=== PATIENT | female | born 1965 | race Caucasian/White ===

== ENCOUNTER 2017-02-26 09:01 | Day surgery (SDC) | payer OTHER ==
--- NOTE | 2017-02-26 10:44 | HISTORY & PHYSICAL EXAMINATION ---
HPI - History of Present Illness HPI Comment/Other: Eleonora is here for screening colonoscopy. Current Meds: ATORVASTATIN CALCIUM 20 MG ORAL TABS (ATORVASTATIN CALCIUM) Take 20 mg by mouth daily Past Medical History: Reviewed history and no changes required: Hyperlipidemia Past Surgical History: Reviewed history and no changes required: Radical hysterectomy - 1996 Family History Summary: Reviewed history and no changes required: 01/09/2017 Father () - Has a father who is alive and well - Entered On: 01/09/2017 Social History: Reviewed history and no changes required: Risk Factors: Smoked Tobacco Use: Current every day smoker Cigarettes: Yes -- 1/2 pack(s) per day,Exercise: yes Times per week: 1 Type of Exercise: Walking Problems were reviewed with the patient during this visit. Medications were reviewed with the patient during this visit. Allergies were reviewed with the patient during this visit. No known allergies. Physical Exam General: well developed, well nourished, in no acute distress Lungs: clear bilaterally to A & P Heart: regular rate and rhythm, S1, S2 without murmurs, rubs, gallops, or clicks Abdomen: bowel sounds positive; abdomen soft and non-tender without masses, organomegaly, or hernias noted Pulses: pulses normal in all 4 extremities Extremities: no clubbing, cyanosis, edema, or deformity noted with normal full range of motion of all joints Cervical Nodes: no significant adenopathy Psych: alert and cooperative; normal mood and affect; normal attention span and concentration Impression & Recommendations: Problem # 1: screening for colon cancer Will proceed with colonoscopy PMH/PSH - Past Medical History Cardiovascular: positive: None Respiratory: positive: None GI: positive: None : positive: None HEENT: positive: None Musculoskeletal: positive: Other MRSA Hx?: No - 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
[2017-02-26] MEDS ORDERED: fentaNYL 100 MCG/2 ML VIAL IVP ONE (10:46)
[2017-02-26] MEDS ORDERED: LACTATED RINGERS 1,000 ML IV ONE ×2 (10:46→11:30)
[2017-02-26] MEDS ORDERED: MIDAZOLAM 2 MG/2 ML VIAL IVP ONE (10:46)
[2017-02-26 12:14] VITALS: BP 110/56
== END 2017-02-26 09:02 | disposition home or self-care (01) ==
LOC: SDS 09:01
PROVIDERS: ATTEND Surgery
PROC: 0DBN8ZX Excision of Sigmoid Colon, Via Natural or Artificial Opening Endoscopic, Diagnostic (ICD-10-PCS; 2017-02-26)
PROC: 0DBH8ZX Excision of Cecum, Via Natural or Artificial Opening Endoscopic, Diagnostic (ICD-10-PCS; 2017-02-26)
PROC: 0DBK8ZX Excision of Ascending Colon, Via Natural or Artificial Opening Endoscopic, Diagnostic (ICD-10-PCS; principal; 2017-02-26 10:30)
DX: Z12.11 Encounter for screening for malignant neoplasm of colon (principal); D12.2 Benign neoplasm of ascending colon; D12.0 Benign neoplasm of cecum; D12.5 Benign neoplasm of sigmoid colon; K64.8 Other hemorrhoids; E78.5 Hyperlipidemia, unspecified; F17.210 Nicotine dependence, cigarettes, uncomplicated; Z90.710 Acquired absence of both cervix and uterus
CPT/HCPCS: 45380; 45385; J7120; 88305

== ENCOUNTER 2017-11-05 07:58 | Emergency (ER) | payer OTHER ==
--- NOTE | 2017-11-05 08:31 | ED Physician Documentation ---
PD HPI URI - Stated complaint Stated Complaint: FLU LIKE SX - Chief complaint Chief Complaint: Resp - History obtained from History obtained from: Patient - History of Present Illness Timing - onset: How many days ago (3-4) Timing duration: Days (3-4) Timing details: Abrupt onset, Still present Associated symptoms: Fever, Chills, Swollen nodes, Dry cough, Chest pain. No: Dyspnea, NVD, Bilateral edema Contributing factors: No: Sick contact, Travel, Immunocompromised Worsened by: Activity, Breathing Similar symptoms before: Has not had sx before Recently seen: Not recently seen Review of Systems Constitutional: reports: Fever, Chills, Myalgias Nose: reports: Rhinorrhea / runny nose, Congestion Throat: denies: Sore throat Cardiac: reports: Chest pain / pressure (sternal/anterior hurts to cough). denies: Palpitations Respiratory: reports: Dyspnea, Cough, Wheezing GI: reports: Nausea. denies: Abdominal Pain, Vomiting, Diarrhea Skin: denies: Rash, Lesions Neurologic: reports: Generalized weakness. denies: Focal weakness, Numbness, Near syncope PD PAST MEDICAL HISTORY - Past Medical History Past Medical History: Yes Cardiovascular: High cholesterol Respiratory: None Neuro: None GI: None : None HEENT: None Musculoskeletal: Other - Past Surgical History Past Surgical History: Yes /REPLENISHER: Hysterectomy - Present Medications Home Medications: Ambulatory Orders Medication Instructions Recorded Confirmed Atorvastatin Calcium [Lipitor] 20 mg PO DAILY 06/19/15 02/26/17 Benzonatate [Tessalon] 100 mg PO TID PRN #25 capsule 11/05/17 Dexamethasone [Decadron] 4 mg PO DAILY #5 tablet 11/05/17 guaiFENesin/CODEINE [Robitussin AC] 10 ml PO Q6H PRN #240 ml 11/05/17 - Allergies Allergies/Adverse Reactions: Allergies Allergy/AdvReac Type Severity Reaction Status Date / Time No Known Drug Allergies Allergy Verified 11/05/17 08:12 - Social History Does the pt smoke?: Yes Smoking Status: Current every day smoker - Immunizations Immunizations are current?: Yes PD ED PE NORMAL - Vitals Vital signs reviewed: Yes - General General: Alert and oriented X 3, No acute distress, Well developed/nourished - HEENT HEENT: Pharynx benign - Neck Neck: Supple, no meningeal sign, No adenopathy - Cardiac Cardiac: RRR, No murmur - Respiratory Respiratory: Clear bilaterally - Abdomen Abdomen: Soft, Non tender - Back Back: No CVA TTP - Derm Derm: Normal color, Warm and dry - Extremities Extremities: No deformity, No tenderness to palpate, Normal ROM s pain - Neuro Neuro: Alert and oriented X 3, No motor deficit, Normal speech Results - Vitals Vitals: Vital Signs - 24 hr 11/05/17 11/05/17 08:09 09:38 Temperature 36.7 C Heart Rate 91 77 Respiratory 16 18 Rate Blood Pressure 114/74 133/65 H O2 Saturation 99 96 Oxygen O2 Source Room air PD MEDICAL DECISION MAKING - ED course Complexity details: considered differential (seems more likely viral Storm and not true flu per se. ), d/w patient Departure - Departure Disposition: 01 Home, Self Care Clinical Impression: Upper respiratory infection Qualifiers: URI type: unspecified URI Qualified Code(s): J06.9 - Acute upper respiratory infection, unspecified Clinical Impression: (Ruled Out): Pneumonia Condition: Stable Record reviewed to determine appropriate education?: Yes Instructions: ED Upper Resp Infec No Abx Tx Prescriptions: Benzonatate [Tessalon] 100 mg PO TID PRN #25 capsule PRN Reason: Cough Dexamethasone [Decadron] 4 mg PO DAILY #5 tablet guaiFENesin/CODEINE [Robitussin AC] 10 ml PO Q6H PRN #240 ml PRN Reason: Cough Comments: Your chest x-ray is clear without any signs of pneumonia. The congestion may have that you are feeling would be in the bronchioles. This most commonly is going to be viral as a chest cold or flulike condition. Use Tessalon if needed for cough. Add codeine cough medicine if needed. Decadron steroid anti- inflammatory daily for 5 days will help quite a bit with the congestion and less coughing. This likely will be about a week of illness. Recheck if worsening significantly. Forms: Activity restrictions Discharge Date/Time: 11/05/17 09:38
[2017-11-05] MEDS ORDERED: BENZONATATE 100 MG CAPSULE PO STA (08:59)
[2017-11-05] MEDS ORDERED: DEXAMETHASONE 10 MG/ML VIAL PO STA (08:59)
--- NOTE | 2017-11-05 09:17 | XRAY Report ---
EXAM: CHEST RADIOGRAPHY EXAM DATE: 11/05/2017 09:12 AM. CLINICAL HISTORY: Cough and congestion for days. COMPARISON: None. TECHNIQUE: 2 views. FINDINGS: Lungs/Pleura: Normal volumes. No focal consolidation or evidence of edema. No pleural effusion or pne umothorax. Mediastinum: Normal cardiomediastinal contour. Other: The bones are normal IMPRESSION: Normal 2-view chest radiography. [facility] Referring Provider Line: [phone] SITE ID: [id number]
[2017-11-05 09:40] VITALS: BP 133/65
== END 2017-11-05 09:38 | disposition home or self-care (01) ==
LOC: ED 07:58
DX: J06.9 Acute upper respiratory infection, unspecified (principal); E78.00 Pure hypercholesterolemia, unspecified; F17.200 Nicotine dependence, unspecified, uncomplicated
CPT/HCPCS: 71046; 99283; A9270

== ENCOUNTER 2020-05-07 13:13 | Outpatient (CLI) | payer OTHER ==
--- NOTE | 2020-05-08 09:43 | Mammography Report ---
BILATERAL DIGITAL SCREENING MAMMOGRAM 3D/2D: 05/07/2020 CLINICAL: Routine screening. Comparison is made to exams dated: 06/15/2018 mammogram, 02/27/2016 mammogram, and 12/13/2013 mammogram - [facility]. The tissue of both breasts is heterogeneously dense. This may lower the sensitivity of mammography. No significant masses, calcifications, or other findings are seen in either breast. There has been no significant interval change. IMPRESSION: NEGATIVE There is no mammographic evidence of malignancy. A 1 year screening mammogram is recommended. This exam was interpreted at Station ID: [id number]. NOTE: For mammograms, a report in lay terms will be sent to the patient. Approximately 15% of breast malignancies will not be visualized mammographically. In the management of a palpable breast mass, a negative mammogram must not discourage biopsy of a clinically suspicious lesion. Electronically Signed By: Jey Thornton M.D. ddp/penrad:05/07/2020 16:51:59 ACR BI-RADS Category 1: Negative 3341F PARENCHYMAL PATTERN: (D) - The breast(s) demonstrate(s) heterogeneously dense fibroglandular juve garcias. BI-RADS CATEGORY: (1) - 1 RECOMMENDATION: (ANNUAL) - Recommend routine annual screening mammography. [id number] 1 year screening LATERALITY: (B)
== END 2020-05-07 13:14 | disposition home or self-care (01) ==
LOC: DI.N 13:13
PROVIDERS: ATTEND Obstetrics & Gynecology
DX: Z12.31 Encounter for screening mammogram for malignant neoplasm of breast (principal); Z87.410 Personal history of cervical dysplasia
CPT/HCPCS: 77063; 77067

== ENCOUNTER 2020-11-19 18:26 | Emergency (ER) | payer OTHER ==
[2020-11-19 18:37] VITALS: BP 134/70
--- NOTE | 2020-11-19 19:00 | ED Physician Documentation ---
History of Present Illness - Stated complaint Stated Complaint: THROAT PX - Chief complaint Chief Complaint: Heent - History obtained from History obtained from: Patient - History of Present Illness Timing: Today Pain level max: 5 Pain level now: 4 - Additonal information Additional information: 54-year-old female was eating dinner tonight when she had a sudden swelling to the left side of her neck. Nothing makes it better or worse. Tender to palpation. Does not recall any similar symptoms previously. No fevers. No chills. No rash. No difficulty breathing. 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 - Present Medications Home Medications: Ambulatory Orders Medication Instructions Recorded Confirmed No Known Home Medications 11/19/20 11/19/20 - Allergies Allergies/Adverse Reactions: Allergies Allergy/AdvReac Type Severity Reaction Status Date / Time No Known Drug Allergies Allergy Verified 11/19/20 18:37 - Social History Does the pt smoke?: Yes Smoking Status: Current every day smoker - Immunizations Immunizations are current?: Yes PD ED PE NORMAL - Vitals Vital signs reviewed: Yes - General General: Alert and oriented X 3, No acute distress - HEENT HEENT: Moist mucous membranes - Neck Neck: Supple, no meningeal sign, Other (Swelling to the left submandibular gland. Tender to palpation over the site. No redness. No purulent drainage inside the mouth. No lymphadenopathy) - Cardiac Cardiac: RRR, Strong equal pulses - Respiratory Respiratory: No respiratory distress, Clear bilaterally - Abdomen Abdomen: Soft, Non tender, Non distended - Derm Derm: Warm and dry - Neuro Neuro: Alert and oriented X 3 Results - Vitals Vitals: Vital Signs - 24 hr 11/19/20 18:35 Temperature 36.2 C L Heart Rate 90 Respiratory 18 Rate Blood Pressure 134/70 H O2 Saturation 98 Oxygen O2 Source Room air PD MEDICAL DECISION MAKING - ED course Complexity details: reviewed old records, considered differential, d/w patient ED course: 54-year-old female with an obstructed left submandibular salivary duct gland. Upon review of her records similar occurrence in 2015. We will have her suck on sour items and hard candies to contribute to salivary flow. We will have her follow-up with her doctor for further care. No indication for antibiotics at this time. Patient counseled regarding signs and symptoms for which I believe and urgent re-evaluation would be necessary. Patient with good understanding of and agreement to plan and is comfortable going home at this time This document was made in part using voice recognition software. While efforts are made to proofread this document, sound alike and grammatical errors may occur. Departure - Departure Disposition: 01 Home, Self Care Clinical Impression: Sialoadenitis of submandibular gland Condition: Good Instructions: ED Sublingual Gland Obstruction Follow-Up: TOSHIA LOMAS PA-C [Primary Care Provider] - Within 1 week Comments: Follow-up with your doctor for further care. This is an obstructed submandibular salivary gland. You can massage the area gently. Sucking on hard candies and sour items such as christiano will help facilitate passage of any stone that may be obstructing the duct. You should follow-up with an ear nose and throat surgeon as well as this is the second time this has occurred to you. Return if you worsen. Discharge Date/Time: 11/19/20 19:20
== END 2020-11-19 19:20 | disposition home or self-care (01) ==
LOC: ED 18:26
DX: K11.20 Sialoadenitis, unspecified (principal); F17.200 Nicotine dependence, unspecified, uncomplicated
CPT/HCPCS: 99281; 99284

== ENCOUNTER 2022-09-30 10:14 | Emergency (ER) | payer OTHER ==
--- NOTE | 2022-09-30 10:53 | XRAY Report ---
PROCEDURE: Chest 2 View X-Ray INDICATIONS: cough TECHNIQUE: 2 views of the chest were acquired. COMPARISON: 11/05/2017 FINDINGS: Surgical changes and devices: None. Lungs and pleura: No pleural effusions or pneumothorax. Lungs are clear. Mediastinum: Mediastinal contours are normal. Heart size is normal. Bones and chest wall: No suspicious bony abnormalities. Soft tissues appear unremarkable. IMPRESSION: No acute cardiopulmonary disease. Reviewed by: Esha Claudio MD on 09/30/2022 9:51 AM [facility] Approved by: Esha Claudio MD on 09/30/2022 9:51 AM [facility] Station ID: [id number]
--- NOTE | 2022-09-30 12:07 | ED Physician Documentation ---
History of Present Illness - Stated complaint Stated Complaint: COUGH - Chief complaint Chief Complaint: Resp - Additonal information Additional information: 56-year-old female presents emergency department for evaluation of a cough that began 5 days ago. She denies any fevers. Cough is dry. She reports that she tested negative for COVID a few days ago. She is a heavy tobacco user smoking 1/2 to 1 pack/day. Denies any history of asthma or COPD. No recent travel. 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 Patient is taking Mucinex and trying to stay hydrated. Review of Systems Constitutional: reports: Fatigue. denies: Fever, Chills, Myalgias Eyes: reports: Reviewed and negative Nose: denies: Congestion Respiratory: reports: Cough. 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 - Present Medications Home Medications: Ambulatory Orders Medication Instructions Recorded Confirmed Atorvastatin [Lipitor] 40 mg PO DAILY 09/30/22 09/30/22 - Allergies Allergies/Adverse Reactions: Allergies Allergy/AdvReac Type Severity Reaction Status Date / Time No Known Drug Allergies Allergy Verified 11/19/20 18:37 - Social History Does the pt smoke?: Yes Smoking Status: Current every day smoker Does the pt drink ETOH?: Yes Does the pt have substance abuse?: No - Immunizations Immunizations are current?: Yes PD ED PE NORMAL - General General: Alert and oriented X 3, No acute distress, Well developed/nourished - HEENT HEENT: Atraumatic, Moist mucous membranes - Cardiac Cardiac: RRR, No murmur - Respiratory Respiratory: No respiratory distress, Clear bilaterally (Unremarkable cardiopulmonary auscultation. No hypoxia. No wheeze rales or rhonchi.) - Abdomen Abdomen: Normal bowel sounds, Soft - Derm Derm: Normal color, Warm and dry, No rash - Neuro Neuro: Alert and oriented X 3 Eye Opening: Spontaneous Motor: Obeys Commands Verbal: Oriented GCS Score: 15 Results - Vitals Vitals: Vital Signs - 24 hr 09/30/22 09/30/22 10:32 12:26 Temperature 37.2 C 37.0 C Heart Rate 82 90 Respiratory 17 18 Rate Blood Pressure 116/69 123/90 H O2 Saturation 97 99 Oxygen O2 Source Room air - Labs Labs: Laboratory Tests 09/30/22 10:33 Nasal Adenovirus (PCR) NOT DETECTED Nasal B. parapertussis DNA (PCR) NOT DETECTED Nasal Coronavir 229E PCR NOT DETECTED Nasal Coronavir HKU1 PCR NOT DETECTED Nasal Coronavir NL63 PCR NOT DETECTED Nasal Coronavir OC43 PCR NOT DETECTED Nasal Enterovir/Rhinovir PCR NOT DETECTED Nasal Influenza B PCR NOT DETECTED Nasal Influenza A PCR NOT DETECTED Nasal Parainfluen 1 PCR NOT DETECTED Nasal Parainfluen 2 PCR NOT DETECTED Nasal Parainfluen 3 PCR DETECTED A Nasal Parainfluen 4 PCR NOT DETECTED Nasal RSV (PCR) NOT DETECTED Nasal B.pertussis DNA PCR NOT DETECTED Nasal C.pneumoniae (PCR) NOT DETECTED Bayron Human Metapneumo PCR NOT DETECTED Nasal M.pneumoniae (PCR) NOT DETECTED Nasal SARS-CoV-2 (PCR) NOT DETECTED - Rads (name of study) cxr Radiology: Final report received (No acute cardiopulmonary process) PD Medical Decision Making - ED course Complexity details: considered differential, d/w patient ED course: 56-year-old female who has a heavy tobacco use history presents the emergency department for evaluation 5 days dry cough. She does not take an MELECIO inhibitor. She has had no fevers or chills. No loss of taste or smell. She reports being vaccinated and boosted for COVID and reports testing negative a few days ago. She has taken Mucinex with little relief of the symptoms. On exam she appears remarkably well. Room air saturations are 97%. She has not tachypneic or labored. Unremarkable cardiopulmonary auscultation without tachypnea wheeze. A 2 view chest x-ray was obtained and per the interpretation of the radiologist is negative for findings suggest pneumonia, pleural effusion or cardiomegaly. 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 Respiratory PCR has been ordered and we will notify her of any positive results. However at this time I discussed the usual conservative routine care measures for viral URI. I did recommend tobacco cessation. Emergent return precautions were discussed 1700: Respiratory PCR has tested positive for parainfluenza 3. I have communicated this with the patient. No further specific treatment is indicated. Departure - Departure Disposition: 01 Home, Self Care Clinical Impression: Viral URI with cough, Tobacco use, Infection due to parainfluenza virus 3 Condition: Stable Record reviewed to determine appropriate education?: Yes Instructions: ED Viral Syndrome Comments: Eleonora I hope that you are feeling better soon. You have had 5 days of dry cough. Here in the emergency department your chest x-ray is normal and does not show any signs of pneumonia, pleural effusion or other emergent concerns with your heart or lungs. Here in the emergency department your vital signs including your heart rate, blood pressure and oxygen levels were normal. When we listen to your heart and lungs they are normal. We did not hear anything wet, wheezy or crackly in your lungs. We have obtained a viral panel and we will notify you only if there are positive results later this afternoon. However you are no longer a candidate for consideration of treatment with Tamiflu should you be influenza positive or Paxlovid/Molnupiravir if you are positive for COVID-19. I recommend you continue staying hydrated. Mucinex can be helpful with the cough. However most coughs will last between 1 and 2 weeks. I do encourage you to stop smoking as chronic tobacco use does put you at risk for recurrent bronchitis, asthma and COPD. If you find that the cough is not improving after 2 weeks, you develop any new fevers, have severely labored breathing you should return to the ER for repeat evaluation. Please discuss this ED visit as soon as you can with your primary care provider. Discharge Date/Time: 09/30/22 12:34
[2022-09-30 12:27] VITALS: BP 123/90
[2022-09-30 13:08] LABS: B. PARAPERTUSSIS- RESP PCR PAN NOT DETECTED; B. PERTUSSIS- RESP PCR PANEL NOT DETECTED; C. PNEUMONIAE- RESP PCR PANEL NOT DETECTED; CORONAVIRUS 229E-RESP PCR NOT DETECTED; CORONAVIRUS HKU1-RESP PCR NOT DETECTED; CORONAVIRUS NL63-RESP PCR NOT DETECTED; CORONAVIRUS OC43-RESP PCR NOT DETECTED; HUMAN METAPNEUMOVIRUS NOT DETECTED; INFLUENZA A- RESP PCR PANEL NOT DETECTED; INFLUENZA B - RESP PCR PANEL NOT DETECTED; M. PNEUMONIAE- RESP PCR PANEL NOT DETECTED; PARAINFLUENZA VIRUS 1 NOT DETECTED; PARAINFLUENZA VIRUS 2 NOT DETECTED; PARAINFLUENZA VIRUS 3 DETECTED; PARAINFLUENZA VIRUS 4 NOT DETECTED; RHINOVIRUS/ENTEROVIRUS NOT DETECTED; RSV- RESP PCR PANEL NOT DETECTED; SARS-CoV-2 -RESP PCR PANEL NOT DETECTED
== END 2022-09-30 12:34 | disposition home or self-care (01) ==
LOC: ED 10:14
DX: B34.8 Other viral infections of unspecified site (principal); F17.200 Nicotine dependence, unspecified, uncomplicated; Z20.822 Contact with and (suspected) exposure to COVID-19
CPT/HCPCS: 87633; 99283; 99284